=== PATIENT | female | born 1930 | race Hispanic/Latino ===

== ENCOUNTER 2017-05-21 07:34 | Day surgery (SDC) | payer MEDICARE, OTHER ==
[2017-05-21 08:35] VITALS: BMI 19.1
[2017-05-21] MEDS ORDERED: Bupivacaine 0.5% Inj(30mL) ONE (10:34)
[2017-05-21] MEDS ORDERED: Lidocaine 1% Inj (20ml) ONE (10:34)
[2017-05-21] MEDS ORDERED: Midazolam 2 MG/2 ML VIAL ONE (10:42)
[2017-05-21] MEDS ORDERED: Propofol 10 mg/ml Inj (20 ML) ONE (10:42)
[2017-05-21] MEDS ORDERED: HYDROmorphone 0.5 mg/0.5 ml ISec IVP PRN (11:31)
[2017-05-21] MEDS ORDERED: Bacitracin Ointment 30 GM TUBE ONE (11:42)
[2017-05-21] MEDS ORDERED: Lactated Ringer's 1,000 ML IV SCH (11:45)
--- NOTE | 2017-05-21 12:00 | PCM.SURG1 ---
Surgeon's Initial Post Op Note - Surgeon's Notes Surgeon: Dr. Pozo Embosser Operator: Dr. Chery Ring DO PGY-3, Dr. Cathy Tadeo DO PGY-2 Type of Anesthesia: IV Sedation, Local Pre-Operative Diagnosis: Right Back Sarcoma Operative Findings: Right Back Sarcoma 3cm x2.5cm Post-Operative Diagnosis: Right Back Sarcoma 3cm x 2.5cm Operation Performed: Wide and Deep Excision of Sarcoma Specimen/Specimens Removed: 3cm x 2.5cm Sarcoma Estimated Blood Loss: EBL {In ML}: 5 Blood Products Given: N/A Drains Used: No Drains Post-Op Condition: Good Date of Surgery/Procedure: 05/21/17 Time of Surgery/Procedure: 12:00
[2017-05-21] MEDS ORDERED: Oxycodone/Acetaminophen 5/325 mg Tab PO PRN (12:02)
[2017-05-21 13:04] VITALS: RESP 18; TEMP 97.4
[2017-05-21 13:29] VITALS: BP 171/73; PULSE 66; O2SAT 100
--- NOTE | 2017-05-22 07:43 | OP ---
PROCEDURE DATE: PREOPERATIVE DIAGNOSIS: Sarcoma of the back. POSTOPERATIVE DIAGNOSIS: Sarcoma of the back. OPERATION PERFORMED: Wide and deep excision of this recurrent sarcoma with advancement flaps superiorly and inferiorly with closure. SURGEON: Dr. Tam Pozo. ASSISTANTS: Jhonathan and Carlyle. DESCRIPTION OF PROCEDURE: In the operating room, the patient was placed on her side with IV sedation. The area was prepped with chlorhexidine, and waiting 3 minutes, it was then draped. Timeout was then taken after the area was draped. After the timeout, the patient was identified by procedure, laterality of my lolis, her consent, name, number, birthday and wristband. A 2 cm in all directions were placed around it including the prior incision. An ellipse was then made and the lesion was marked on the superior edge with a silk and removed and sent to the lab. Flaps were then raised superiorly using the cautery and a scissors. Inferiorly, the same went about 4 inches in all directions. This allowed closure with large 2-0 Vicryl. Multiple stitches were placed. Subcutaneous stitches were placed followed by subcuticular PDS, mattress stitches of nylon were then placed just for tension release. Wounds were injected with Marcaine 0.5 about 30 mL. Patient tolerated the procedure well, and after the wound was dressed, the patient was taken to recovery room in good condition. Tam Pozo MD
== END 2017-05-21 14:05 | disposition home or self-care (01) ==
LOC: SDS 07:34
PROVIDERS: ATTEND Surgery
DX: C49.6 Malignant neoplasm of connective and soft tissue of trunk, unspecified (principal)
CPT/HCPCS: 21932; 88307; J1170; J2001; J2250; J2704; J3010; J7120 ×2